=== PATIENT | female | born 1955 | race Caucasian/White ===

== ENCOUNTER 2018-11-19 07:30 | Inpatient (IN) | payer OTHER ==
[~2018-11-19] VITALS: Ht 162.6 cm; Wt 112.0 kg
[2018-11-19] MEDS ORDERED: JENTADUETO 2.51 EAC2 PO (09:58)
[2018-11-19] MEDS ORDERED: ZESTRIL10 MG PO (09:59)
[2018-11-19] MEDS ORDERED: SYNTHROID112 MCG PO (09:59)
[2018-11-19] MEDS ORDERED: OMEPRAZOLE20 MG PO (09:59)
[2018-11-19] MEDS ORDERED: HYDROCHLOROTHIA25 MG PO (09:59)
[2018-11-19] MEDS ORDERED: ECOTRIN81 MG PO (09:59)
[2018-11-19] MEDS ORDERED: ATORVASTATIN CA20 MG PO (10:00)
[2018-11-19] MEDS ORDERED: PEPCID AC20 MG PO (10:00)
[2018-11-19] MEDS ORDERED: NEURONTIN300 MG PO (10:00)
[2018-11-19] MEDS ORDERED: LANTUS SOL100 UNIT/1 SUBCUTANEO (10:00)
[2018-11-26] MEDS ORDERED: DUI500 PO (14:55)
[2018-11-26] MEDS ORDERED: ELIQUIS2.5 MG PO (14:55)
[2018-11-26] MEDS ORDERED: PERCOCET 5-3251 EACH PO (14:55)
== END 2018-11-26 18:45 | DRG 470 ==
LOC: O/R 07:30 → SURG 11-24 06:51 → O/R 11-24 06:51 → SURH 11-24 07:30 → SURG 11-24 15:51
PROVIDERS: ADMIT Orthopaedic Surgery
PROC: 0MNN0ZZ Release Right Knee Bursa and Ligament, Open Approach (ICD-10-PCS; 2018-11-24)
PROC: 0SRC0J9 Replacement of Right Knee Joint with Synthetic Substitute, Cemented, Open Approach (ICD-10-PCS; principal; 2018-11-24 12:30)
DX: M17.11 Unilateral primary osteoarthritis, right knee (principal); M80.00XA Age-related osteoporosis with current pathological fracture, unspecified site, initial encounter for fracture; D62 Acute posthemorrhagic anemia; E66.09 Other obesity due to excess calories; E03.8 Other specified hypothyroidism; I11.9 Hypertensive heart disease without heart failure; E11.9 Type 2 diabetes mellitus without complications; Z79.4 Long term (current) use of insulin

== ENCOUNTER 2022-03-06 08:02 | Outpatient (CLI) | payer OTHER ==
[~2022-03-06 08:02] MED LIST: ATORVASTATIN CA20 MG PO; DUI500 PO; ECOTRIN81 MG PO; ELIQUIS2.5 MG PO; HYDROCHLOROTHIA25 MG PO; JENTADUETO 2.51 EAC2 PO; LANTUS SOL100 UNIT/1 SUBCUTANEO; NEURONTIN300 MG PO; OMEPRAZOLE20 MG PO; PEPCID AC20 MG PO; PERCOCET 5-3251 EACH PO; SYNTHROID112 MCG PO; ZESTRIL10 MG PO
== END 2022-03-06 08:11 | disposition home or self-care (01) ==
LOC: RX STUDY 08:02
DX: R13.10 Dysphagia, unspecified (principal)

== ENCOUNTER 2024-07-27 11:13 | Emergency (ER) | payer OTHER ==
[~2024-07-27] VITALS: Ht 162.6 cm; Wt 112.0 kg
[2024-07-27] MEDS ORDERED: FARXIGA10 MG PO (11:45)
[2024-07-27] MEDS ORDERED: OZEMPIC2 MG/0.75 SQ (11:45)
[2024-07-27] MEDS ORDERED: PROTONIX20 MG PO (11:46)
[2024-07-27] MEDS ORDERED: BACITRACIN28.4 G1 TOP (13:59)
== END 2024-07-27 14:50 | disposition home or self-care (01) ==
LOC: ER 11:13
DX: S60.452A Superficial foreign body of right middle finger, initial encounter (principal); W45.8XXA Other foreign body or object entering through skin, initial encounter; Y93.89 Activity, other specified; Y92.89 Other specified places as the place of occurrence of the external cause; I49.8 Other specified cardiac arrhythmias; J44.9 Chronic obstructive pulmonary disease, unspecified; E03.8 Other specified hypothyroidism; E11.65 Type 2 diabetes mellitus with hyperglycemia; Z79.4 Long term (current) use of insulin

== ENCOUNTER → 2024-08-02 | Outpatient (CLI) | payer OTHER ==
[~2024-08-02] MED LIST changes: +BACITRACIN28.4 G1 TOP; +FARXIGA10 MG PO; +OZEMPIC2 MG/0.75 SQ; +PROTONIX20 MG PO
== END | disposition home or self-care (01) ==
LOC: NUCLEAR 08:09
PROVIDERS: ATTEND Thoracic Surgery (Cardiothoracic Vascular Surgery)
DX: I87.2 Venous insufficiency (chronic) (peripheral) (principal)

== ENCOUNTER 2024-08-03 08:33 | Outpatient (CLI) | payer OTHER | END 2024-08-03 08:34 | disposition home or self-care (01) | LOC: NUCLEAR 08:33 | PROVIDERS: ATTEND Thoracic Surgery (Cardiothoracic Vascular Surgery) | DX: I73.9 Peripheral vascular disease, unspecified (principal) ==